=== PATIENT | male | born 1930 | race Caucasian/White ===

== ENCOUNTER 2016-06-07 17:14 | Inpatient (IN) | payer MEDICARE ==
[2016-06-07 17:54] LABS: ABSOLUTE NEUTROPHIL COUNT 9.4 K/mm3 (1.8-7.7); BASO % 0.1 % (0.2-1.0); HEMATOCRIT 41.6 % (32.0-52.0); IMM NEUT # 0.2 K/mm3 (0-0.2); IMM NEUT% 1.3 % (0-1); LYMPH # 0.7 (1.0-4.8); MEAN CELL VOLUME 107.5 fl (80.0-94.0); MEAN CORPUSCULAR HEMOGLOBIN 33.6 pg (27.0-31.0); MEAN CORPUSCULAR HGB CONC 31.3 g/dl (33.0-37.0); MEAN PLATELET VOLUME 12.3 fl (7.4-10.4); MONO # 0.9 (0.0-0.8); MONO % 8.2 % (4-12); NEUT % 84.4 % (43-75); PLATELET COUNT 86 K/mm3 (130-400); RED CELL DISTRIBUTION WIDTH 14.6 % (11.5-14.5)
[2016-06-07] MEDS ORDERED: ALBUTEROL/IPRATROPIUM 2.5/0.5 MG 3 ML/EACH DOSE ONE (18:00)
[2016-06-07 18:05] LABS: VENOUS BLOOD GAS BASE EXCESS 2.7 mmol/L (-2.0-2.0); VENOUS BLOOD GAS HCO3 31.6 mmol/L (22.0-27.0)
[2016-06-07 18:06] LABS: ALBUMIN 3.7 gm/dL (3.5-5.7); CALCIUM 9.1 mg/dL (8.6-10.3)
[2016-06-07] MEDS ORDERED: FUROSEMIDE 40 MG/4 ML VIAL ONE (18:06)
[2016-06-07 18:21] LABS: PROTHROMBIN TIME 69.1 SECONDS (9.3-11.4)
[2016-06-07 18:24] LABS: INR 6.22
--- NOTE | 2016-06-07 18:46 | RAD ---
06/07/2016 6:41 PM CHEST-AP BEDSIDE History: Shortness of breath, hypoxia. History of heart failure and COPD. Comparison: 11/20/2011 Findings: Single AP view of the chest is obtained. The lungs demonstrate linear platelike atelectasis at the right base. Low-volume limit the study. Small right-sided effusion is likely present versus pleural thickening, as this was seen on prior exam. The cardiomediastinal silhouette is unremarkable.. The osseous structures are intact.. Median sternotomy wires are present. Left-sided single lead pacemaker is identified with lead terminating in expected region of the right ventricle. EKG leads overlie the chest. IMPRESSION: Low volumes with probable pleural thickening versus small effusion on the right. Follow-up as clinically warranted.
[2016-06-07 19:57] VITALS: BMI 35.4
[2016-06-07] MEDS ORDERED: MENTHOL/CETYLPYRD 1 EACH LOZENGE PO PRN (20:03)
[2016-06-07] MEDS ORDERED: ACETAMINOPHEN 325 MG TABLET PO PRN ×2 (20:03→20:08)
[2016-06-07] MEDS ORDERED: BISACODYL 5 MG TABLET.EC PO PRN (20:03)
[2016-06-07] MEDS ORDERED: CALCIUM CARBONATE 500 MG TAB.CHEW PO PRN (20:03)
[2016-06-07] MEDS ORDERED: SODIUM CHLORIDE 0.9% 100 ML IV PRN (20:03)
[2016-06-07] MEDS ORDERED: BLISTEX LIPSTICK 1 EACH TP PRN (20:03)
[2016-06-07] MEDS ORDERED: BISACODYL 10 MG SUP PR PRN (20:03)
[2016-06-07] MEDS ORDERED: ALBUTEROL SULFATE 200 PUFFS/INH INHALER IH PRN (20:08)
[2016-06-07] MEDS ORDERED: ALBUTEROL/IPRATROPIUM 2.5/0.5 MG 3 ML/EACH DOSE NEB PRN (20:11)
[2016-06-07 20:47] LABS: URINE BILIRUBIN NEGATIVE (NEGATIVE); URINE BLOOD TRACE (NEGATIVE); URINE GLUCOSE (UA) NEGATIVE (NEGATIVE); URINE LEUKOCYTE ESTERASE NEGATIVE (NEGATIVE); URINE NITRITE NEGATIVE (NEGATIVE); URINE PROTEIN NEGATIVE (NEGATIVE); URINE UROBILINOGEN NORMAL (0-1 mg/dl)
[2016-06-07 20:49] LABS: URINE APPEARANCE CLEAR; URINE COLOR YELLOW
[2016-06-07 20:53] LABS: URINE BACTERIA 0; URINE EPITHELIAL CELLS 0 /hpf; URINE RBC 0 /hpf; URINE WBC NEG /hpf
[2016-06-07] MEDS: CARVEDILOL 6.25 MG TABLET PO SCH (21:25)
[2016-06-07] MEDS: NORTRIPTYLINE HCL 25 MG CAPSULE PO SCH (21:25)
[2016-06-07] MEDS: DOCUSATE SODIUM 100 MG CAPSULE PO SCH (21:25)
[2016-06-07] MEDS: PREDNISONE 10 MG TABLET PO SCH (21:27)
[2016-06-07] MEDS ORDERED: FUROSEMIDE 40 MG/4 ML VIAL IV SCH (22:00)
[2016-06-07] MEDS ORDERED: FUROSEMIDE 40 MG/4 ML VIAL IV ONE (22:00)
[2016-06-08 00:47] LABS: ARTERIAL BLOOD GAS HCO3 27.4 mmol/L (22.0-28.0); ARTERIAL BLOOD GAS PCO2 63.3 mmHg (35.0-45.0); ARTERIAL BLOOD GAS PO2 74.7 mmHg (80.0-90.0); ARTERIAL BLOOD GAS pH 7.255 (7.350-7.450)
[2016-06-08 05:41] LABS: ABSOLUTE NEUTROPHIL COUNT 9.2 K/mm3 (1.8-7.7); BASO % 0.2 % (0.2-1.0); HEMATOCRIT 38.7 % (32.0-52.0); HEMOGLOBIN 12.1 gm/l (14.0-18.0); IMM NEUT # 0.2 K/mm3 (0-0.2); IMM NEUT% 1.5 % (0-1); LYMPH # 0.5 (1.0-4.8); LYMPH % 4.5 % (15-45); MEAN CELL VOLUME 105.4 fl (80.0-94.0); MEAN CORPUSCULAR HGB CONC 31.3 g/dl (33.0-37.0); MEAN PLATELET VOLUME 12.4 fl (7.4-10.4); MONO % 9.3 % (4-12); NEUT % 84.5 % (43-75); PLATELET COUNT 87 K/mm3 (130-400); RED CELL DISTRIBUTION WIDTH 14.4 % (11.5-14.5)
[2016-06-08 06:06] LABS: ALB/GLOB RATIO 1.4 (>1.0); ALBUMIN 3.3 gm/dL (3.5-5.7); CALCIUM 8.4 mg/dL (8.6-10.3); MAGNESIUM 2.6 mg/dL (1.9-2.7)
[2016-06-08 06:09] LABS: PROTHROMBIN TIME 81.1 SECONDS (9.3-11.4)
[2016-06-08 06:17] LABS: INR 6.97
[2016-06-08 06:24] LABS: ARTERIAL BLOOD GAS BASE EXCESS 3.5 mmol/L (-2.0-2.0); ARTERIAL BLOOD GAS HCO3 32.1 mmol/L (22.0-28.0); ARTERIAL BLOOD GAS PCO2 67.1 mmHg (35.0-45.0); ARTERIAL BLOOD GAS PO2 76.5 mmHg (80.0-90.0); ARTERIAL BLOOD GAS pH 7.298 (7.350-7.450)
--- NOTE | 2016-06-08 08:48 | CT ---
Exam Type: CHEST W/O CON Date and Time: 06/08/2016 6:17 AM History: Hypoxia. Comparison: Plain films earlier on the same day and to 417 Technique: Contiguous axial 3 mm images of the chest were obtained without IV contrast given patient's low GFR. Sagittal and coronal reformations with high resolution lung algorithm images were also obtained at this time. CT DI: 20.3 DLP: 736.3 FINDINGS: LUNG AND LARGE AIRWAYS: Patchy bibasilar consolidation is identified greater than would be expected for dependent and atelectatic changes at the lung bases. Patient motion artifact also limits assessment. Upper lungs are fairly clear with some scattered areas of groundglass opacity. PLEURA: within normal limits. VESSELS: Marked enlargement of the main pulmonary artery is present measuring approximately 4.9 cm on axial image 41 at the level of the bifurcation. The right pulmonary artery measures approximately 3.7 cm on image 46, with the left measuring approximately 2.9 cm on image 38. Findings likely relate to pulmonary artery hypertension. Coronary artery calcifications are present with moderate atherosclerotic disease of the visualized aorta. HEART: Moderately enlarged No pericardial effusion. MEDIASTINUM AND KATRIN: within normal limits. CHEST WALL AND LOWER NECK: Left-sided pacemaker is present with leads terminating in the expected regions of the coronary sinus and right ventricle. UPPER ABDOMEN: Ascites is noted along the dome of the liver, of unknown clinical significance. The remainder the visualized abdomen is unremarkable. BONES: Median sternotomy wires are present. Diffuse osteopenia. No lytic or sclerotic lesions. Multilevel degenerative changes of the spine are present. IMPRESSION: Patchy bibasilar airspace disease with scattered areas of groundglass opacity throughout the lungs. This is greater than would be expected for dependent and atelectatic change and more concerning for pneumonia. No effusion or pneumothorax. Moderate cardiomegaly. Marked dilation of the main pulmonary artery and ectasia of the right and left pulmonary arteries compatible with pulmonary arterial hypertension. Left-sided pacemaker and other incidental findings as above. Findings were called to Dr. Henriquez at approximately 0 840 hours on 06/08/2016.
[2016-06-08] MEDS ORDERED: FEBUXOSTAT 40 MG TABLET PO SCH (09:00)
--- NOTE | 2016-06-08 09:37 | RAD ---
06/08/2016 9:32 AM CHEST-AP BEDSIDE History: Follow-up CHF versus other. Comparison: 06/07/2016 Findings: Single AP view of the chest is obtained. The lungs again demonstrate the patchy bibasilar airspace disease with pleural thickening versus effusion on the right. This is not significantly changed from prior study The cardiomediastinal silhouette enlarged but stable. The osseous structures are intact.. 2-lead left-sided pacemaker is present with leads terminating in expected regions of the right ventricle. IMPRESSION: Stable appearance to the patient's bibasilar airspace disease and pleural thickening. CT is to follow.
[2016-06-08] MEDS: ASPIRIN (ENTERIC COATED) 81 MG TABLET.EC PO SCH (09:41)
[2016-06-08] MEDS: CARVEDILOL 6.25 MG TABLET PO SCH ×3 (09:41→20:08)
[2016-06-08] MEDS: MULTIVITAMINS 1 TAB TABLET PO SCH (09:41)
[2016-06-08] MEDS: DOCUSATE SODIUM 100 MG CAPSULE PO SCH ×2 (09:41→20:08)
[2016-06-08] MEDS: PREDNISONE 10 MG TABLET PO SCH (09:41)
[2016-06-08] MEDS: POLYETHYLENE GLYCOL 3350 17 G POWD.SUSP PO SCH ×2 (09:41→09:46)
[2016-06-08] MEDS: FUROSEMIDE 40 MG/4 ML VIAL IV SCH ×2 (09:41→17:03)
--- NOTE | 2016-06-08 10:23 | HP ---
BRIAN DEVI [id number] CHIEF COMPLAINT: Dyspnea. HISTORY OF PRESENT ILLNESS: The patient is an 85-year-old male with a history of chronic obstructive pulmonary disease, and congestive heart failure who reports three to four day history of some dyspnea. He called the doctor's office and they referred him to the emergency department and they [facility]. He denies fevers, chills, or sweats, but has had dyspnea for the last couple of days and on 06/04/2016 had been a little bit confused, otherwise had done ok since that time, but has been quite sleepy. They turn up the oxygen level to 3 L continuously, otherwise he is on 1 L at night and 3 L with activity. He has had no sputum. He has had some rattling noted in his chest. No ankle swelling. No medication changes recently except for Dr. Perez suggested taking 2 Lasix this a.m. which did not relieve his symptoms. He denies chest pain, or pressure, just dyspnea. PAST MEDICAL HISTORY: Remarkable for: 1. Coronary artery disease with a reported history of myocardial infarction and a bypass in 2006. 2. History of congestive heart failure. Previously he had a low ejection fraction which improved with 35% after his bypass, but in October of 2015 was 45 to 50%. 3. History of hypertension. 4. Dyslipidemia. 5. Atrial fibrillation. 6. Peripheral vascular disease. 7. Obesity. 8. History of elevated glucose in the past, but his glucose is normal today and he is not on any medications. 9. History of anemia. 10. History of smoking 3 packs a day, but quit in 2003. He has about a 120 pack year history. 11. History of colon polyps in 2013, both were tubular adenomatous. 12. History of chronic kidney disease with a creatinine usually around 1.6 to 2.3, but today is elevated at 3. 13. He has had a previous history of vitreous hemorrhage on the left, and has had some injections on the right for his macular degeneration and he has poor vision. 14. History of gout. He is on Uloric and prednisone. He had to quit the allopurinol due to a rash. 15. History of chronic obstructive pulmonary disease. He uses 2 L with activity and 1 L at night. 16. He was also hospitalized in July of 2015 for his cellulitis and ulcers of the lower extremities which has since healed. PAST SURGICAL HISTORY: Remarkable for: 1. Blepharoplasty. 2. Colonoscopy. 3. Atrioventricular node ablation. 4. Pacemaker. 5. Coronary artery bypass graft. ALLERGIES: INCLUDE ACYCLOVIR, AND ALLOPURINOL. HE IS LISTED BEING ALLERGIC TO TRIAMCINOLONE IN THE COMPUTER, BUT SUSPECT THAT IS NOT CORRECT. MEDICATIONS: Taken from Dr. Lolis You's list: 1. Acetaminophen 325 mg 1 to 2 by mouth every 4 hours as needed. 2. Aspirin 81 mg daily. 3. Coreg 3.125 mg by mouth twice a day. 4. Multivitamin daily. 5. Eye vitamin daily. 6. Fish oil 1000 mg by mouth daily. 7. Lasix 40 mg by mouth twice a day although he did take 80 mg this morning under Dr. Perez's suggestion. 8. Nortriptyline 25 mg at bedtime. 9. Prednisone 5 mg daily. 10. Simvastatin 20 mg today. 11. Uloric 80 mg daily. 12. Ventolin HFA as needed. 13. Warfarin 2.5 mg Thursday, Thursday, and and 1.25 Thursday, Thursday, Thursday, and Thursday. This is for atrial fibrillation. He was last checked for this 05/09/2016 and had an INR of 2.2, but today it is markedly elevated and suspect this is related to his poor oral intake and illness acutely. IMMUNIZATIONS: Influenza 03/24/2016, and [id number] on 08/24/2014. SOCIAL HISTORY: He has a history of smoking 3 packs per day for 40 years, quit in 2003. 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 He last work in [employer]. He has been for 15 years. He has three boys and one girl from previous relationship. He also has one adopted. No alcohol. No roman catholic affiliation. Hobbies include fishing, although he has limited activity tolerance. He lives in a [facility] trailer with and one dog. FAMILY HISTORY: Father no data. Mom at age 88. 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 The right is not good either with macular degeneration. Nose has been okay. Mouth has been okay. Ears are ok. Neck is ok. No chest pain. No sputum. Stomach is ok. No constipation. No diarrhea. Urinary: He does report that he feels like he has to urinate, but this is attributed to the urinary catheter that has been placed in the emergency department. Arms: He notes they some lying in bed. His bottom also hurts from lying on the gurney in the emergency department. He has had no history of stroke, but had been confused earlier this week. He does not wish to be resuscitated, and does not wish to be intubated. This was discussed with the patient, and patient' today. PHYSICAL EXAMINATION: GENERAL: Tired appearing male, BiPAP is on. VITAL SIGNS: Blood pressure is 143/75. Heart rate is 70. Respirations are 30. Oxygen saturation is 97% on BiPAP. Temperature is 98.3 axillary temperature. HEENT: Head is normocephalic, atraumatic. Eyes are difficult to assess, but no icterus is noted. Right eye with subconjunctival hemorrhage. Ears: Cerumen noted bilaterally, and difficult to assess the tympanic membranes; but hearing is adequate considering age. Nose and mouth are difficult to assess due to BiPAP mask in place. NECK: Difficult to assess also due to positioning, and mask. LUNGS: Poor air movement bilaterally. Some crackles noted to the posterior bases. HEART: Paced. Pacemaker present in the left upper chest. Heart sounds are distant and BiPAP and respiratory noises impair auscultation. No significant murmur is appreciated. ABDOMEN: Soft, nontender, and nondistended. Bowel sounds are normal. No rebound, and no guarding. GENITOURINARY: Penis is circumcised. Price is present. No gross abnormalities noted. EXTREMITIES: Legs with 1+ edema with moderate pitting noted, slightly manjeet dislocation with some old scabs and old scars consistent with a history of peripheral vascular disease. Fairly yellow marked onychomycosis is noted on the nails bilaterally, but no ulceration is seen on the feet, or lower extremities otherwise. Hands are grossly unremarkable. Some scattered bruising is noted. NEUROLOGIC: Cranial nerves appear to be intact, but difficult to assess. The patient does answer some questions, but has difficulty speaking above the muffling from the mask. LABORATORY: White count is 11.2, hemoglobin 13, and platelets 86. MCV is 107.5. INR is 6.22. Venous pH is 7.273. O2 saturation is 92% on venous blood gas, pCO2 of venous system is 70. Bicarbonate is 31.6, and pO2 71.6. Sodium is 136, potassium 5.3, chloride 97, C02 of 30, BUN 94, creatinine 3, glucose 106, and calcium 9.1. Bilirubin is 1.3. AST is 26. ALT is 23. Alkaline phosphatase is 206. Troponin is 0.17. BNP is 597. Albumin is 3.7. Globulin is 3.6. DIAGNOSTIC IMAGIN. Chest x-ray: Low volumes with probable pleural thickening versus small right pleural effusion and sternotomy changes, and pacemaker noted. 2. Electrocardiogram is paced. ASSESSMENT/PLAN: 1. Acute on chronic congestive heart failure, this is suspected systolic. Previous echocardiogram of 10/2015 showed ejection fraction 45 to 50%, but had been previously at 35%, or lower before. We will plan to give IV Lasix. Continue Coreg, monitor troponin, and anticipate recheck echocardiogram. 2. Acute kidney injury with creatinine going from 2 to 3. We will be giving IV Lasix and be cautious with fluids. We will recheck in the morning. He is not on LUISA, or ARB due to renal dysfunction at this time. 3. Atrial fibrillation. Rate is controlled. He is currently over anticoagulated on Warfarin. We will monitor on telemetry. 4. Over anticoagulation attributed acute illness. We will be holding Warfarin for the next couple of days. 5. Chronic obstructive pulmonary disease on oxygen chronically. We will continue on oxygen with his acute respiratory failure due to congestive heart failure and chronic obstructive pulmonary disease. We will be on BiPAP and consider CT if he is able to tolerate further and not having the desired response to the Lasix. We will also check influenza testing and plan nebulizer treatments as well. 6. Gout. On prednisone, chronically as well as Uloric. We will anticipate double dose of prednisone for the next 2 days for stress dose and continue on Uloric. 7. History of hyperglycemia. We will plan to monitor, but at this time he does not significant hypoglycemia, and this may have been previously associated with his last hospitalization. 8. History of peripheral vascular disease. Now quit smoking. He appears to be stable. 9. History of hypertension. We will monitor his blood pressure while he is here. 10. DO NOT INTUBATE/DO NOT RESUSCITATE requested today. 11. History of coronary artery disease with borderline elevated troponin. We will recheck, but at this time feels this is likely related to his renal status and congestive heart failure. If marked elevation, or other changes we will review with Dr. Perez. In the meantime, we will treat acute kidney injury and congestive heart failure as best as possible. 12. Macrocytosis with thrombocytopenia. We will check reticulocyte count, B12, folate, and recheck CBC in the morning. It may be that he has an early myodysplasia. 13. Immunizations. He is currently up to date. 14. Venous thromboembolism prophylaxis. He is currently over anticoagulated with Coumadin. 15. Disposition. Hope to be able to return to home with his in the next 2 to 4 days. VELVET/sanjuanita cc: MD Lolis Glynn MD Dr. Macasa Dr. [place]
[2016-06-08] MEDS ORDERED: PUMP TUBING ONE (10:43)
[2016-06-08] MEDS ORDERED: SODIUM CHLORIDE 0.9% 250 ML IV ONE (10:43)
--- NOTE | 2016-06-08 10:44 | PDOC43 ---
- Subjective Chief Complaint: Dyspnea Patient noted to have dyspnea when on 5L sitting on edge of bed with PT. Pt went down for CT. Tolerated Bipap for most of night, dyspnea is a little better , but ABG still markedly abnormal. Patient reports doing ok, doesn't care for the Bipap, but doing better than yesterday. No new c/o. Would like to eat something this am. - Objective Vital Signs Temperature 98.6 F 06/08/16 07:00 Pulse Rate 70 06/08/16 07:00 Respiratory Rate 20 06/08/16 08:00 Blood Pressure 106/47 06/08/16 07:00 O2 Saturation by Pulse Oximetry 93 06/08/16 07:00 Oxygen Delivery Method Nasal Cannula Oxygen Flow Rate 5 Vital Signs Last 12 Hours Temp Pulse Resp BP Pulse Ox 06/08/16 08:00 20 06/08/16 07:00 98.6 F 70 20 106/47 93 06/08/16 04:58 70 95 06/08/16 04:00 18 06/08/16 03:00 98.7 F 70 18 94/46 94 06/08/16 02:39 70 94 06/08/16 00:10 70 94 06/08/16 00:00 18 06/07/16 23:36 70 119/64 94 06/07/16 22:55 99.1 F 70 18 96/52 92 Intake and Output 06/06/16 06/07/16 06/08/16 23:59 23:59 23:59 Intake Total 120 400 Output Total 440 850 Balance -320 -450 Intake & Output 06/07/16 06/08/16 06/08/16 23:59 07:59 15:59 Intake Total 120 400 Output Total 440 850 Balance -320 -450 Weight 105.8 kg 105 kg Intake: PO Intake 120 400 Output: Price Output 90 850 ER Urine 350 General: Alert, Cooperative, No Acute Distress HEENT: Atraumatic Lungs: Other (Fair to poor air movement bilat, some rhonchi, decreased breath sounds bilat.) Cardiovascular: Regular Rate and Rhythm (paced) Abdomen: Soft, Normal Bowel Sounds, Non-Distended Genitourinary: Other (urine sl cloudy) Extremities: Edema (mild edema lower extrem. SCDs on.) Skin: Normal Color Neurological: Normal Speech (improved today, able to speak whole sentences, stronger.) Psych/Mental Status: Other (appears more at baseline.) Laboratory 06/08/16 05:30 06/08/16 05:30 06/08/16 06/08/16 06/07/16 06:07 05:30 22:00 RBC 3.67 L MCV 105.4 H MCH 33.0 H MCHC 31.3 L PT 81.1 H INR 6.97 H* pCO2 67.1 H pO2 76.5 L ABG pH 7.298 L ABG HCO3 32.1 H ABG O2 Saturation ABG Base Excess 3.5 H BUN 102 H Estimated GFR 20 L Calcium 8.4 L Total Bilirubin 1.3 H Alkaline Phosphatase 182 H Troponin I 0.12 H 0.15 H Total Protein 5.7 L Albumin 3.3 L % Immature Granulocyt 1.5 H 06/07/16 21:50 RBC MCV MCH MCHC PT INR pCO2 63.3 H pO2 74.7 L ABG pH 7.255 L ABG HCO3 ABG O2 Saturation 93.1 L ABG Base Excess BUN Estimated GFR Calcium Total Bilirubin Alkaline Phosphatase Troponin I Total Protein Albumin % Immature Granulocyt Current Medications: Current meds reviewed in EMR. Active Medications Acetaminophen (Tylenol) 325 - 650 mg PO Q4H PRN PRN Reason: Pain or Temperature > 100.5 F Albuterol Sulfate (Ventolin Hfa Mdi) 2 puffs IH Q4H PRN PRN Reason: Wheezing or Dyspnea Albuterol/Ipratropium (Duoneb) 3 ml NEB Q6H PRN PRN Reason: Wheezing Aspirin (Ecotrin) 81 mg PO DAILY [facility] Last Admin: 06/08/16 09:41 Dose: 81 mg Benzocaine/Menthol (Cepacol) 1 each PO PRN PRN PRN Reason: Sore Throat Bisacodyl (Dulcolax) 10 mg TN DAILY PRN PRN Reason: Constipation Bisacodyl (Dulcolax) 5 mg PO DAILY PRN PRN Reason: Constipation Calcium Carbonate/Glycine (Tums) 500 mg PO Q4H PRN PRN Reason: Indigestion Carvedilol (Coreg) 6.25 mg PO BID [facility] Last Admin: 06/07/16 21:25 Dose: 6.25 mg Docusate Sodium (Colace) 100 mg PO BID [facility] Last Admin: 06/08/16 09:41 Dose: 100 mg Furosemide (Lasix) 40 mg IV [id number] [facility] Last Admin: 06/08/16 09:41 Dose: 40 mg Sodium Chloride (Sodium Chloride 0.9%) 100 mls @ 25 mls/hr IV PRN PRN PRN Reason: Flush Azithromycin 500 mg/ Sodium (Chloride) 250 mls @ 250 mls/hr IV Q24H [facility] Ceftriaxone Sodium/Dextrose 1 (g/ Premix (D5W) 50 ml) 50 mls @ 100 mls/hr IV Q24H [facility] Multivitamins (One-A-Day) 1 tab PO DAILY [facility] Last Admin: 06/08/16 09:41 Dose: 1 tab Nortriptyline HCl (Pamelor) 25 mg PO BEDTIME [facility] Last Admin: 06/07/16 21:25 Dose: 25 mg Petrolatum/Paraffin/Mineral Oil (Blistex) 1 each TP PRN PRN PRN Reason: Dry and/or chapped lips Polyethylene Glycol/Electrolytes (Miralax) 17 g PO DAILY [facility] Last Admin: 06/08/16 09:46 Dose: Not Given Prednisone (Prednisone) 5 mg PO QAM [facility] Sodium Chloride (Normal Saline 10ml Flush) 10 - 50 ml IV PRN PRN PRN Reason: IV Flush Last Admin: 06/08/16 06:20 Dose: 10 ml Sodium Chloride (Normal Saline 10ml Flush) 10 ml IV Q8HR [facility] Last Admin: 06/08/16 09:41 Dose: 10 ml - Problems: Assessment/Plan (1) Acute respiratory failure with hypoxia and hypercapnia Status: Acute Assessment/Plan: Patient with hypercapnia, hypoxia; now on Bipap; moderate improvement so far CT suggests poss consolidation; pulmonary HTN. Underlying dx appears to be consolidation (suspected CAP), pulmonary HTN, exac COPD. Plan recheck ABG in am. (2) JUAN C (acute kidney injury) Status: Acute Assessment/Plan: Baseline Cr 1.6-2.0; remaining stable at 3.0 today. Pt taking PO today, consider add'l fluid if not taking much PO. (3) CHF (congestive heart failure) Qualifiers: Congestive heart failure type: unspecified congestive heart failure type Congestive heart failure chronicity: acute on chronic Qualifier Code: ( I50.9) Heart failure, unspecified Status: Acute Assessment/Plan: Echo ordered. CT suggests pulmonary HTN. Pt with borderline elevated troponin (trending downward); check CPK, CK-MB this am (4) Atrial fibrillation Qualifiers: Atrial fibrillation type: chronic Qualifier Code: (I48.2) Chronic atrial fibrillation Status: Chronic Assessment/Plan: Chronically anticoagulated; on Coreg. Rate stable at 70, paced. INR supratherapeutic, holding coumadin for today. Recheck in am. (5) COPD (chronic obstructive pulmonary disease) Qualifiers: COPD type: unspecified COPD Qualifier Code: (J44.9) Chronic obstructive pulmonary disease, unspecified Status: Chronic Assessment/Plan: Continue nebulizer tx. 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 Uloric dose revised to 40 due to renal status, will need to consider further if Creatinine remains elevated. VTE Prophylaxis Contraindications: Medical contraindication VTE Prophylaxis: INR supratherapeutic. Disposition: continue in ICU, using Bipap. Hope to be able to return to home, probably 2-5 days in hospital still
[2016-06-08] MEDS: CEFTRIAXONE 1 GRAM DUPLEX 1 G in Premix (D5W) 50 ml 1 EACH IV SCH (10:50)
[2016-06-08] MEDS: AZITHROMYCIN 500 MG in SODIUM CHLORIDE 0.9% 250 ML IV SCH (11:33)
[2016-06-08] MEDS: FEBUXOSTAT 40 MG TABLET PO SCH (11:59)
[2016-06-08] MEDS: NORTRIPTYLINE HCL 25 MG CAPSULE PO SCH (20:08)
[2016-06-09 05:06] LABS: ARTERIAL BLOOD GAS BASE EXCESS 4.4 mmol/L (-2.0-2.0); ARTERIAL BLOOD GAS HCO3 29.4 mmol/L (22.0-28.0); ARTERIAL BLOOD GAS PCO2 45.9 mmHg (35.0-45.0); ARTERIAL BLOOD GAS PO2 83.7 mmHg (80.0-90.0); ARTERIAL BLOOD GAS pH 7.425 (7.350-7.450)
[2016-06-09 06:05] LABS: HEMATOCRIT 39.3 % (32.0-52.0); HEMOGLOBIN 11.9 gm/l (14.0-18.0); MEAN CELL VOLUME 106.8 fl (80.0-94.0); MEAN CORPUSCULAR HEMOGLOBIN 32.3 pg (27.0-31.0); MEAN CORPUSCULAR HGB CONC 30.3 g/dl (33.0-37.0); RED CELL DISTRIBUTION WIDTH 14.4 % (11.5-14.5)
[2016-06-09 06:26] LABS: ALBUMIN 3.1 gm/dL (3.5-5.7); CALCIUM 8.9 mg/dL (8.6-10.3)
[2016-06-09 06:26] LABS: FOLIC ACID > 23.7 ng/mL (>5.9)
[2016-06-09 06:43] LABS: PROTHROMBIN TIME 86.3 SECONDS (9.3-11.4)
[2016-06-09 06:44] LABS: INR 7.72
[2016-06-09] MEDS ORDERED: PHYTONADIONE 10 MG/1 ML AMP IV ONE (06:44)
[2016-06-09] MEDS ORDERED: SODIUM CHLORIDE 0.9% IV ONE (07:00)
[2016-06-09] MEDS ORDERED: PHYTONADIONE ADULT IV ONE (07:00)
[2016-06-09] MEDS ORDERED: PUMP TUBING ONE (07:50)
[2016-06-09] MEDS: CARVEDILOL 6.25 MG TABLET PO SCH ×2 (08:06→20:17)
[2016-06-09] MEDS: POLYETHYLENE GLYCOL 3350 17 G POWD.SUSP PO SCH (08:06)
[2016-06-09] MEDS: MULTIVITAMINS 1 TAB TABLET PO SCH (08:06)
[2016-06-09] MEDS: ASPIRIN (ENTERIC COATED) 81 MG TABLET.EC PO SCH (08:06)
[2016-06-09] MEDS: FUROSEMIDE 40 MG/4 ML VIAL IV SCH ×2 (08:06→15:54)
[2016-06-09] MEDS: DOCUSATE SODIUM 100 MG CAPSULE PO SCH ×2 (08:06→20:17)
[2016-06-09] MEDS: PREDNISONE 5 MG TABLET PO SCH (08:08)
[2016-06-09] MEDS: FEBUXOSTAT 40 MG TABLET PO SCH (08:08)
[2016-06-09] MEDS: CEFTRIAXONE 1 GRAM DUPLEX 1 G in Premix (D5W) 50 ml 1 EACH IV SCH (08:30)
[2016-06-09] MEDS: AZITHROMYCIN 500 MG in SODIUM CHLORIDE 0.9% 250 ML IV SCH (09:10)
[2016-06-09] MEDS ORDERED: WARFARIN PER PHARMACY 1 EACH DOSE PO SCH (10:00)
--- NOTE | 2016-06-09 10:25 | PDOC43 ---
- Subjective Chief Complaint: Dyspnea Patient reported to be on Bipap through the night. CO2 improved, but still on high FiO2. RN reports pt wanting to get out of bed. Sats drop rapidly to 88% when Bipap off , down to 82% on 5L NC when taking pills. No special pain complaints. Did get echo this am. Did get Vit K earlier today. Small BM reported by nightman, not eating much. No new c/o. - Objective Vital Signs Temperature 100.2 F 06/09/16 07:11 Pulse Rate 70 06/09/16 07:11 Respiratory Rate 29 06/09/16 08:35 Blood Pressure 102/51 06/09/16 07:11 O2 Saturation by Pulse Oximetry 94 06/09/16 07:11 Oxygen Delivery Method Bi-PAP Oxygen Flow Rate 5 Vital Signs Last 12 Hours Temp Pulse Resp BP Pulse Ox 06/09/16 08:35 29 06/09/16 07:11 100.2 F 70 29 102/51 94 06/09/16 04:03 71 92/43 91 06/09/16 03:50 14 06/09/16 02:50 99.9 F 70 14 92/43 90 06/09/16 00:00 24 06/08/16 23:56 70 94/46 93 06/08/16 23:50 70 24 87 06/08/16 22:47 99.9 F 70 22 94/46 93 Intake and Output 06/07/16 06/08/16 06/09/16 23:59 23:59 23:59 Intake Total 120 1570 765 Output Total 440 1450 300 Balance -320 120 465 General: Alert, Cooperative, No Acute Distress Lungs: Other (Poor air movement bilat, sl wheeze noted. No crackles heard, but difficult auscultation.) Cardiovascular: Regular Rate and Rhythm, Other Abdomen: Soft, Hypoactive Bowel Sounds, Non-Distended Extremities: Other (SCDs), No Edema Psych/Mental Status: Other (tired, answers appropriately.) Laboratory 06/09/16 05:30 06/09/16 05:30 06/09/16 06/09/16 06/08/16 05:30 05:00 05:15 RBC 3.68 L MCV 106.8 H MCH 32.3 H MCHC 30.3 L PT 86.3 H INR 7.72 H* pCO2 45.9 H ABG HCO3 29.4 H ABG Base Excess 4.4 H BUN 112 H Estimated GFR 19 L Total Bilirubin 1.3 H Alkaline Phosphatase 233 H Creatine Kinase 20 L Troponin I 0.12 H Total Protein 6.2 L Albumin 3.1 L // Current Medications: Current meds reviewed in EMR. Active Medications Cardiac Aspirin (Ecotrin) 81 mg PO DAILY REPLACED BY [facility] Last Admin: 06/09/16 08:06 Dose: 81 mg Carvedilol (Coreg) 6.25 mg PO BID REPLACED BY [facility] Last Admin: 06/09/16 08:06 Dose: 6.25 mg Furosemide (Lasix) 40 mg IV [id number] REPLACED BY [facility] Last Admin: 06/09/16 08:06 Dose: 40 mg FEN Multivitamins (One-A-Day) 1 tab PO DAILY REPLACED BY [facility] Last Admin: 06/09/16 08:06 Dose: 1 tab GI Docusate Sodium (Colace) 100 mg PO BID REPLACED BY [facility] Last Admin: 06/09/16 08:06 Dose: 100 mg Polyethylene Glycol/Electrolytes (Miralax) 17 g PO DAILY REPLACED BY [facility] Last Admin: 06/09/16 08:06 Dose: 17 g ID Azithromycin 500 mg/ Sodium (Chloride) 250 mls @ 250 mls/hr IV Q24H REPLACED BY [facility] Last Admin: 06/09/16 09:10 Dose: 250 mls/hr Ceftriaxone Sodium/Dextrose 1 (g/ Premix (D5W) 50 ml) 50 mls @ 100 mls/hr IV Q24H REPLACED BY [facility] Last Admin: 06/09/16 08:30 Dose: 100 mls/hr Neuro/Psych Nortriptyline HCl (Pamelor) 25 mg PO BEDTIME REPLACED BY [facility] Last Admin: 06/08/16 20:08 Dose: 25 mg PRN Acetaminophen (Tylenol) 325 - 650 mg PO Q4H PRN PRN Reason: Pain or Temperature > 100.5 F Benzocaine/Menthol (Cepacol) 1 each PO PRN PRN PRN Reason: Sore Throat Bisacodyl (Dulcolax) 10 mg [place] DAILY PRN PRN Reason: Constipation Bisacodyl (Dulcolax) 5 mg PO DAILY PRN PRN Reason: Constipation Calcium Carbonate/Glycine (Tums) 500 mg PO Q4H PRN PRN Reason: Indigestion Petrolatum/Paraffin/Mineral Oil (Blistex) 1 each TP PRN PRN PRN Reason: Dry and/or chapped lips Pulmonary Albuterol Sulfate (Ventolin Hfa Mdi) 2 puffs IH Q4H PRN PRN Reason: Wheezing or Dyspnea Albuterol/Ipratropium (Duoneb) 3 ml NEB Q6H PRN PRN Reason: Wheezing Last Admin: 06/08/16 23:49 Dose: 3 ml Rheum Prednisone (Prednisone) 5 mg PO QAM ANTOINETTE Last Admin: 06/09/16 08:08 Dose: 5 mg - Problems: Assessment/Plan (1) Acute respiratory failure with hypoxia and hypercapnia Status: Acute Assessment/Plan: Patient with hypercapnia, hypoxia; still on Bipap; moderate improvement so far on ABG, but clinically not ruben improved. CT suggests poss consolidation; pulmonary HTN; working on diuresis with Lasix ( appears fairly dry now), With ongoing poor air movement, plan to start steroids as well. Underlying dx appears to be consolidation (suspected CAP), pulmonary HTN, exac COPD. will address exac COPD with steroids (2) JUAN C (acute kidney injury) Status: Acute Assessment/Plan: Baseline Cr 1.6-2.0; remaining stable/sl up at 3.1 today. Pt taking PO today, plan IV fluid (3) CHF (congestive heart failure) Qualifiers: Congestive heart failure type: unspecified congestive heart failure type Congestive heart failure chronicity: acute on chronic Qualifier Code: ( I50.9) Heart failure, unspecified Status: Acute Assessment/Plan: Echo ordered, anticipate it being done today. CT suggests pulmonary HTN. Pt with borderline elevated troponin (trending downward); CPK, CK-MB not remarkable. (4) Atrial fibrillation Qualifiers: Atrial fibrillation type: chronic Qualifier Code: (I48.2) Chronic atrial fibrillation Status: Chronic Assessment/Plan: Chronically anticoagulated; on Coreg. Rate stable at 70, paced. INR supratherapeutic, still holding coumadin for today / VIt K given earlier x 1. Recheck in am. (5) COPD (chronic obstructive pulmonary disease) Qualifiers: COPD type: unspecified COPD Qualifier Code: (J44.9) Chronic obstructive pulmonary disease, unspecified Status: Chronic Assessment/Plan: Continue nebulizer tx, Bipap. 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 Uloric now stopped due to renal status, will need to consider further if Creatinine remains elevated. VTE Prophylaxis Contraindications: Medical contraindication VTE Prophylaxis: INR supratherapeutic, did get VIt K. Disposition: continue in ICU, using Bipap. Hope to be able to return to home, probably 2-5 days in hospital still
[2016-06-09] MEDS ORDERED: INSULIN ASPART (DOSE) 100 UNITS/1 ML SUB-Q PRN (10:28)
[2016-06-09] MEDS: SODIUM CHLORIDE 0.9% 1,000 ML IV SCH ×2 (10:37→18:55)
[2016-06-09 11:26] LABS: URINE BILIRUBIN NEGATIVE (NEGATIVE); URINE BLOOD 4+ (NEGATIVE); URINE GLUCOSE (UA) NEGATIVE (NEGATIVE); URINE LEUKOCYTE ESTERASE NEGATIVE (NEGATIVE); URINE NITRITE NEGATIVE (NEGATIVE); URINE PROTEIN 2+ (NEGATIVE); URINE UROBILINOGEN NORMAL (0-1 mg/dl)
[2016-06-09 11:34] LABS: URINE APPEARANCE CLOUDY; URINE COLOR RED
[2016-06-09 11:53] LABS: URINE RBC >100 /hpf
[2016-06-09 11:55] LABS: URINE AMORPHOUS SEDIMENT 2+; URINE BACTERIA 1+
[2016-06-09] MEDS: METHYLPRED SOD SUCCINATE 40 MG VIAL IV SCH (16:00)
[2016-06-09] MEDS: NORTRIPTYLINE HCL 25 MG CAPSULE PO SCH (20:17)
[2016-06-09] MEDS ORDERED: MORPHINE SULFATE 2 MG/ML SYRINGE IV PRN (21:34)
[2016-06-10] MEDS: METHYLPRED SOD SUCCINATE 40 MG VIAL IV SCH ×2 (01:20→09:45)
[2016-06-10 05:28] LABS: ABSOLUTE NEUTROPHIL COUNT 10.1 K/mm3 (1.8-7.7); BASO % 0.2 % (0.2-1.0); HEMATOCRIT 40.7 % (32.0-52.0); HEMOGLOBIN 12.2 gm/l (14.0-18.0); IMM NEUT # 0.1 K/mm3 (0-0.2); IMM NEUT% 0.8 % (0-1); LYMPH # 0.5 (1.0-4.8); LYMPH % 4.1 % (15-45); MEAN CELL VOLUME 108.5 fl (80.0-94.0); MEAN CORPUSCULAR HEMOGLOBIN 32.5 pg (27.0-31.0); MEAN PLATELET VOLUME 11.6 fl (7.4-10.4); MONO # 0.3 (0.0-0.8); MONO % 2.7 % (4-12); NEUT % 92.2 % (43-75); PLATELET COUNT 81 K/mm3 (130-400); RED CELL DISTRIBUTION WIDTH 14.6 % (11.5-14.5)
[2016-06-10 05:49] LABS: INR 1.4; PROTHROMBIN TIME 14.9 SECONDS (9.3-11.4)
[2016-06-10 06:02] LABS: ALB/GLOB RATIO 0.9 (>1.0); ALBUMIN 3.1 gm/dL (3.5-5.7); CALCIUM 9.1 mg/dL (8.6-10.3)
[2016-06-10 06:51] LABS: BAND 9 % (0-10); BASOPHIL 0 % (0-1); EOSINOPHIL 0 % (1-3); LYMPHOCYTE 3 % (15-45); MONOCYTE 0 % (4-12); NEUTROPHILS 88 % (43-75); PLATELET ESTIMATE DECREASED (NORMAL); TOTAL CELLS COUNTED 100
[2016-06-10 06:52] LABS: ANISOCYTOSIS 1+; HYPOCHROMIA 1+
[2016-06-10] MEDS ORDERED: SODIUM POLYSTYRENE SULFONATE 15 G/60 ML BOT PO ONE (08:36)
[2016-06-10] MEDS ORDERED: LACTULOSE 20 G/30 ML UDCUP PO PRN (08:38)
[2016-06-10] MEDS ORDERED: SENNOSIDES 8.6 MG TABLET PO PRN (08:38)
[2016-06-10] MEDS: CEFTRIAXONE 1 GRAM DUPLEX 1 G in Premix (D5W) 50 ml 1 EACH IV SCH (08:47)
--- NOTE | 2016-06-10 08:50 | PDOC43 ---
- Subjective Chief Complaint: Dyspnea Patient reported to be modestly better. Was off bipap for 5 hours yesterday, did have some Ensure and fruit cup this am. Pt denies pain. No new c/o. Given IVF and steroids yesterday. Abx continued so far. - Objective Vital Signs Temperature 97.3 F 06/10/16 02:32 Pulse Rate 70 06/10/16 05:12 Respiratory Rate 16 06/10/16 04:00 Blood Pressure 98/49 06/10/16 02:32 O2 Saturation by Pulse Oximetry 95 06/10/16 05:12 Oxygen Delivery Method Bi-PAP Oxygen Flow Rate 5 Vital Signs Last 12 Hours Temp Pulse Resp BP Pulse Ox 06/10/16 05:12 70 95 06/10/16 04:00 16 06/10/16 02:32 97.3 F 70 16 98/49 95 06/10/16 01:37 70 94 06/10/16 00:00 18 06/09/16 22:44 70 96/46 96 06/09/16 22:38 98.3 F 70 18 92/47 93 Intake and Output 06/08/16 06/09/16 06/10/16 23:59 23:59 23:59 Intake Total 1570 3282 1190 Output Total 1450 625 450 Balance 120 2657 740 Intake & Output 06/09/16 06/10/16 06/10/16 23:59 07:59 15:59 Intake Total 1017 1190 660 Output Total 325 450 Balance 692 740 660 Weight 107.6 kg Intake: PO Intake 200 360 IV Fluids 817 1190 300 Output: Price Output 325 450 General: Other (Pt awakens easily. Answers questions, but is difficult to understand.) Lungs: Other (Poor air movement bilat.) Cardiovascular: Regular Rate and Rhythm (paced.) Abdomen: Soft, Normal Bowel Sounds, Other (full abdomen, no R/G. Not tender.) Extremities: Other (SCDs), No Edema Skin: Normal Color, Other (skin appears thin) Neurological: Other (minimally improved from admission) Laboratory 06/10/16 05:10 06/10/16 05:10 06/10/16 06/09/16 06/09/16 05:10 22:32 14:07 RBC 3.75 L MCV 108.5 H MCH 32.5 H MCHC 30.0 L RDW 14.6 H PT 14.9 H BUN 124 H Estimated GFR 19 L POC Capillary Glucose 234 H 137 H Total Bilirubin 1.1 H Alkaline Phosphatase 243 H Albumin 3.1 L Albumin/Globulin Ratio 0.9 L Current Medications: Current meds reviewed in EMR. Active Medications Acetaminophen (Tylenol) 325 - 650 mg PO Q4H PRN PRN Reason: Pain or Temperature > 100.5 F Albuterol Sulfate (Ventolin Hfa Mdi) 2 puffs IH Q4H PRN PRN Reason: Wheezing or Dyspnea Albuterol/Ipratropium (Duoneb) 3 ml NEB Q6H PRN PRN Reason: Wheezing Last Admin: 06/08/16 23:49 Dose: 3 ml Aspirin (Ecotrin) 81 mg PO DAILY [facility] Last Admin: 06/09/16 08:06 Dose: 81 mg Benzocaine/Menthol (Cepacol) 1 each PO PRN PRN PRN Reason: Sore Throat Bisacodyl (Dulcolax) 10 mg [place] DAILY PRN PRN Reason: Constipation Bisacodyl (Dulcolax) 5 mg PO DAILY PRN PRN Reason: Constipation Calcium Carbonate/Glycine (Tums) 500 mg PO Q4H PRN PRN Reason: Indigestion Carvedilol (Coreg) 6.25 mg PO BID [facility] Last Admin: 06/09/16 20:17 Dose: 6.25 mg Docusate Sodium (Colace) 100 mg PO BID [facility] Last Admin: 06/09/16 20:17 Dose: 100 mg Furosemide (Lasix) 40 mg IV [id number] [facility] Last Admin: 06/09/16 15:54 Dose: 40 mg Sodium Chloride (Sodium Chloride 0.9%) 100 mls @ 25 mls/hr IV PRN PRN PRN Reason: Flush Azithromycin 500 mg/ Sodium (Chloride) 250 mls @ 250 mls/hr IV Q24H [facility] Last Admin: 06/09/16 09:10 Dose: 250 mls/hr Ceftriaxone Sodium/Dextrose 1 (g/ Premix (D5W) 50 ml) 50 mls @ 100 mls/hr IV Q24H [facility] Last Admin: 06/09/16 08:30 Dose: 100 mls/hr Insulin Aspart (Novolog (Dose)) 0 units SUB-Q WM/BEDTIME PRN; Protocol PRN Reason: Blood Sugar > Last Admin: 06/09/16 22:38 Dose: 2 units Methylprednisolone Sodium Succinate (Solu-Medrol) 40 mg IV Q8HR [facility] Last Admin: 06/10/16 01:20 Dose: 40 mg Miscellaneous (Coumadin Per Pharmacy) 1 each PO PERPHARMACY [facility] Morphine Sulfate (Morphine Sulfate) 2 mg IV Q2H PRN PRN Reason: for pain or dyspnea Last Admin: 06/09/16 22:21 Dose: 2 mg Multivitamins (One-A-Day) 1 tab PO DAILY [facility] Last Admin: 06/09/16 08:06 Dose: 1 tab Nortriptyline HCl (Pamelor) 25 mg PO BEDTIME [facility] Last Admin: 06/09/16 20:17 Dose: 25 mg Petrolatum/Paraffin/Mineral Oil (Blistex) 1 each TP PRN PRN PRN Reason: Dry and/or chapped lips Polyethylene Glycol/Electrolytes (Miralax) 17 g PO DAILY [facility] Last Admin: 06/09/16 08:06 Dose: 17 g Prednisone (Prednisone) 5 mg PO QAM [facility] Last Admin: 06/09/16 08:08 Dose: 5 mg Sodium Chloride (Normal Saline 10ml Flush) 10 - 50 ml IV PRN PRN PRN Reason: IV Flush Last Admin: 06/08/16 17:04 Dose: 10 ml Sodium Chloride (Normal Saline 10ml Flush) 10 ml IV Q8HR [facility] Last Admin: 06/10/16 02:49 Dose: Not Given - Problems: Assessment/Plan (1) Acute respiratory failure with hypoxia and hypercapnia Status: Acute Assessment/Plan: Patient with hypercapnia, hypoxia; still on Bipap; Bicarbonate improved to 31 this am. recheck abg. CT suggests poss consolidation; pulmonary HTN; working on diuresis with Lasix ( IVF yesterday, doesn't appear fluid overloaded.), started steroids 2/6 Underlying dx appears to be consolidation (suspected CAP), pulmonary HTN, exac COPD. will address exac COPD with steroids. Continue azithromycin, ceftriaxone. (2) JUAN C (acute kidney injury) Status: Acute Assessment/Plan: Baseline Cr 1.6-2.0; remaining stable/sl up at 3.1 today. Potassium increasing, now 6.0; will consider kayexalate Check Mg, Phos today and tomorrow. IV fluids cautiously yesterday, will give again today. Check urine (3) CHF (congestive heart failure) Qualifiers: Congestive heart failure type: unspecified congestive heart failure type Congestive heart failure chronicity: acute on chronic Qualifier Code: ( I50.9) Heart failure, unspecified Status: Acute Assessment/Plan: Echo done 06/09 suggests pulmonary HTN, severe R vent dilatation, LESLY; awaiting final report Pt with borderline elevated troponin (trending downward); CPK, CK-MB not remarkable. recheck BNP (4) Atrial fibrillation Qualifiers: Atrial fibrillation type: chronic Qualifier Code: (I48.2) Chronic atrial fibrillation Status: Chronic Assessment/Plan: Chronically anticoagulated; on Coreg. Rate stable at 70, paced. INR was high; Vit K given earlier x 1. INR now 1.4. Plan resume enoxaparin for anticoagulation (5) COPD (chronic obstructive pulmonary disease) Qualifiers: COPD type: unspecified COPD Qualifier Code: (J44.9) Chronic obstructive pulmonary disease, unspecified Status: Chronic Assessment/Plan: Continue nebulizer tx, Bipap, abx, (now full dose) steroids. Appreciate RT care. 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 Uloric now stopped due to renal status, VTE Prophylaxis Contraindications: Medical contraindication VTE Prophylaxis: INR now 1.4, after Vit K. Disposition: continue in ICU, using Bipap. with ongoing respiratory difficulty, renal failure, may wish to discuss pt and family wishes regarding further interventions Additional Comments: Pulmonary - exac COPD, suspect severe pulm HTN, with bacterial (organism not known) CAP/consolidation on CT Initially with respiratory acidosis, now corrected with Bipap. Modest improvement so far with abx, diuresis. Added steroids 2/ Continue on Bipap Cardiac suspect pt's CHF is primarily right sided, acute on chronic diastolic HF, with pulm HTN Elevated troponin not significant, just related to respiratory distress Atrial fib, paced. Rate 70 Anticoag - anticipate enoxaparin (was previous over-anticoag with coumadin, then got Vit K) Severe R sided changes on echo, awaiting final report Check BNP, but anticipate add'l IVF today GI BM 2 days ago; more meds added Tolerating PO intake, seems to like the Ensure Renal/FEN Cr remains elevated at 3.1, fairly low urine output in setting of lower BP. Hyperkalemia - due to renal dysfxn. Potassium further elevated, despite IV Lasix, not giving K Plan dose Kayexalate; check Mg, Phos Plan add'l fluids today cautiously, checking BNP, monitor response, urine output MVI, check with dietitian Will discuss with family about renal status, if wishing further tx, and who did he see previously. Dee renewed due to need to monitor urine output. Derm - no c/o Neuro - stable, but seems weak appreciate PT/OT care Will work to correct electrolyte abN. DNR status Endocrine Glucose up some, due to steroids on CBG, insulin. Rheum Hx hyperuricemia, hx gout (believed in foot?), not current. Heme/Onc Anemia, macrocytic. Sl elevated retic count. Suspect poss myelodysplasia with lower platelets Thrombocytopenia suspected due to bone marrow/myelodysplasia Elevated WBC due to CAP, also steroids may contribute. Elevated INR was toxic drug effect from Coumadin, now corrected. Was elevated due to decreased appetite/intake, illness.
[2016-06-10] MEDS: AZITHROMYCIN 500 MG in SODIUM CHLORIDE 0.9% 250 ML IV SCH (09:09)
[2016-06-10] MEDS: MULTIVITAMINS 1 TAB TABLET PO SCH (09:46)
[2016-06-10] MEDS: DOCUSATE SODIUM 100 MG CAPSULE PO SCH (09:46)
[2016-06-10] MEDS: POLYETHYLENE GLYCOL 3350 17 G POWD.SUSP PO SCH (09:46)
[2016-06-10] MEDS: PREDNISONE 5 MG TABLET PO SCH (09:46)
[2016-06-10] MEDS: FEBUXOSTAT 40 MG TABLET PO SCH (09:46)
[2016-06-10] MEDS: ASPIRIN (ENTERIC COATED) 81 MG TABLET.EC PO SCH (09:46)
[2016-06-10] MEDS: CARVEDILOL 6.25 MG TABLET PO SCH (09:46)
[2016-06-10] MEDS: FUROSEMIDE 40 MG/4 ML VIAL IV SCH (09:46)
[2016-06-10] MEDS ORDERED: SODIUM CHLORIDE 0.9% 1,000 ML IV SCH (10:00)
[2016-06-10] MEDS ORDERED: ENOXAPARIN SODIUM 100 MG/ML SYRINGE SUB-Q SCH (10:30)
[2016-06-10 10:56] LABS: ARTERIAL BLOOD GAS BASE EXCESS -2.8 mmol/L (-2.0-2.0); ARTERIAL BLOOD GAS HCO3 26.2 mmol/L (22.0-28.0); ARTERIAL BLOOD GAS PCO2 66.2 mmHg (35.0-45.0); ARTERIAL BLOOD GAS PO2 70.6 mmHg (80.0-90.0); ARTERIAL BLOOD GAS pH 7.216 (7.350-7.450)
[2016-06-10 11:02] LABS: MAGNESIUM 2.8 mg/dL (1.9-2.7)
[2016-06-10 11:08] VITALS: BP 97/82
[2016-06-10] MEDS ORDERED: SODIUM CHLORIDE IRRIG 1,000 ML BOT IR ONE (12:44)
[2016-06-10] MEDS ORDERED: CALCIUM ACETATE 667 MG CAPSULE PO SCH (13:00)
--- NOTE | 2016-06-10 13:21 | TS ---
Mendez Black [id number] DATE OF ADMISSION: 06/07/2016 DATE OF TRANSFER: 06/10/2016 REASON FOR TRANSFER: Transfer to assist with continuing respiratory failure and continuing renal dysfunction with electrolyte disturbance. OTHER TRANSFER DIAGNOSES: Include: 1. Acute respiratory failure with hypoxia and hypercapnia currently on Bi-PAP. 2. Moderate pulmonary hypertension. 3. Consolidation suggestive of pneumonia, presumed bacterial, no organism identified and blood cultures negative. 4. Acute kidney injury, baseline creatinine 1.6 to 2.0, has been remaining between 3 and 3.1 since admission associated with hyperkalemia now treated with Kayexalate and hypermagnesemia and hyperphosphatemia. 5. Congestive heart failure both acute on chronic with systolic and diastolic dysfunction, ejection fraction 35% on echocardiogram this hospitalization. 6. Chronic atrial fibrillation on anticoagulation rate controlled and paced. 7. Over anticoagulation now status post vitamin K with correction. INR 1.4. 8. Severe chronic obstructive pulmonary disease. 9. History of gout. 10. Borderline elevated troponin not felt to be significant. Normal CPK. Normal CK-MB. 11. 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 12. Hyperglycemia attributed to steroids. 13. Poor oral intake. REASON FOR ADMISSION: The patient is a 85-year-old male with history of severe chronic obstructive pulmonary disease and congestive heart failure who presented regarding a 3 to 4 day history of worsening dyspnea. He increased his home oxygen some without much improvement. Dr. Franks had seen him and suggested increasing his Lasix which did not relieve his symptoms. In the emergency room his initial findings showed a white blood cell count of 11.2, hemoglobin 13.0, MCV 107.5, platelets 86. His INR was 6.22. His initial blood gas showed a venous pH of 7.273, oxygen saturation 92%. Base excess 2.7, venous pCO2 70, venous PO2 71.6, and bicarbonate 31.6. His sodium was 136, potassium 5.3, BUN 94, creatinine 3.0, glucose 106, calcium 9.1, bilirubin 1.3, AST 26, ALT 23, alkaline phosphatase elevated at 206. Troponin 0.17, BNP 597. His urinalysis initially showed a specific gravity of 1.20 and was negative. Influenza testing was negative. His initial chest x-ray had showed low volumes with probable pleural thickening versus small effusion on the right. He was referred to the hospitalist service. Blood cultures were done and were negative. He was admitted to the intensive care unit and started on a Bi-PAP which he tolerated fairly well. He underwent diuresis with IV Lasix, but did not have substantial output. He had a CT of the chest performed 06/08/2016 which showed patchy bibasilar airspace disease with scattered areas of ground glass opacity throughout the lungs greater than expected for dependent or atelectatic changes and more concerning for pneumonia, no effusion or pneumothorax, moderate cardiomegaly, marked dilation of the main pulmonary artery, and ectasia of the right and left pulmonary arteries compatible with pulmonary hypertension, left sided pacemaker. Patient was treated with Rocephin and azithromycin. His initial low dose prednisone for his gout was continued with only a brief stress dose given. His CBC results remained relatively unchanged with the white count remaining between 10 and 12. His hemoglobin trended mildly downward to 12.1 and then 11.9. Platelets remained in the 80,000 range. A reticulocyte count was done and it was minimally elevated at 2.3. His INR remained elevated and actually trended upward despite holding his Coumadin up to 7.72 on 06/09/2016 when he received a dose of vitamin K and then it was 1.4 on 06/10/2016. Patient had several blood gases performed on Bi-PAP. He had a general trending downward of his pCO2 as low as 45.9. On 06/09/2016 pH was 1.425, PO2 of 83.7, saturation 96%, but a follow up blood gas done when he was on 5 liters nasal cannula showed a pH of 7.216, pCO2 of 66, and a PO2 of 70.6. His creatinine remained relatively unchanged at 3.1 despite initial diuresis and lateral administration of IV fluids. His potassium trended upward from 5.3 on admission to 6.0 to 2.7 when he received a dose of Kayexalate 15 gm. His magnesium and phosphorus were checked and phosphorus elevated at 6.6 when PhosLo was started and the magnesium was 2.8. Liver enzymes remained relatively unchanged with a modest elevation of his alkaline phosphatase at 243. His troponin trended downward from 0.17 on admission to 0.12 by 06/09/2016. His CK-MB remained low. His BNP was 597 on admission and on the morning of 06/10/2016 it was 351. He had a B12 and a folate level down to check his macrocytosis, B12 was 723 and folic acid greater than 23. A follow up urinalysis showed greater than 100 red cells, 3 to 5 white cells, 1+ bacteria, but this was after his Price catheter had been in for several days. His echocardiogram was performed on 06/09/2016 and showed moderate left ventricular dilation, left atrial enlargement by volume criteria, global hypokinesis of the left ventricle with moderately reduced systolic function, left ventricular ejection fraction estimated at 35%, aortic valve poorly seen, mild mitral annular calcification, mild tricuspid valve regurgitation, estimated right ventricular systolic pressure, pacing artifact in the right sided chambers, suggestion of grade II diastolic dysfunction with elevated left atrial pressure. With a lack of progress on laboratory findings and respiratory status call was made to [facility] and spoke with Dr. Varela. He indicated that patient would be a satisfactory patient for transfer and he would accept this patient when a bed became available. It is anticipated the patient will be sent. This was discussed with the patient's as well and patient is anticipated to transferred later today. ALLERGIES: PATIENT'S CURRENT ALLERGIES LISTED BEING ALLOPURINOL WHICH CAUSED A RASH, ACYCLOVIR UNSPECIFIED REACTION, AND TRIAMCINOLONE WHICH WAS ASSOCIATED WITH A RASH. DISCHARGE MEDICATIONS: His active medications are: 1. Acetaminophen 325 to 650 mg by mouth every 4 hours as needed. 2. Albuterol 2 puffs inhaled every 4 hours as needed. 3. DuoNeb 3 mL neb every 6 hours as needed. 4. Aspirin 81 mg daily. 5. Azithromycin 500 mg now to be discontinued after today being his third day. 6. Cepacol as needed. 7. Dulcolax by mouth as needed. 8. PhosLo started at 1334 mg three times daily with meals. 9. Tums 500 mg by mouth every 4 hours as needed. 10. Coreg 6.25 mg by mouth twice daily. 11. Ceftriaxone 1 gm every 24 hours. 12. Colace 100 mg by mouth twice daily scheduled. 13. Lovenox 100 mg every 24 hours. 14. Furosemide 40 mg IV twice daily. 15. NovoLog sliding scale with meals and at bedtime. 16. Lactulose 10 gm by mouth daily as needed. 17. Solu-Medrol 40 mg IV every 8 hours scheduled was started on 06/09/2016. 18. Coumadin per pharmacy is on hold. 19. Morphine sulfate 2 mg IV every 2 hours as needed. 20. Multivitamin 1 by mouth daily. 21. Nortriptyline 25 mg at bedtime. 22. Blistex topically as needed. 23. MiraLax 17 mg by mouth daily. 24. Prednisone is on hold. 25. Senna 8.6 mg by mouth daily as needed. 26. He was going to receive some additional normal saline cautiously today. VITAL SIGNS: Most recently are temperature 97.5, pulse 70, blood pressure 97/82, respirations 19, 97% on saturation on Bi-PAP, 40% FIO2. DISCHARGE CONDITION: Remains relatively unchanged. He is slightly sleepy, but is able to answer and is able to eat some, but fatigues very quickly and has marked weakness. CODE STATUS: Do not resuscitate, do not intubate. JOB: [id number] CC: Dr. Danielle Read Dr. Tiny Varela
== END 2016-06-10 15:30 | disposition short-term general hospital (02) | DRG 189 ==
LOC: ED 17:14 → ICU 18:43
PROVIDERS: ADMIT Family Medicine; ATTEND Family Medicine
DX: J96.02 Acute respiratory failure with hypercapnia (principal); J15.9 Unspecified bacterial pneumonia; I50.43 Acute on chronic combined systolic (congestive) and diastolic (congestive) heart failure; N17.9 Acute kidney failure, unspecified; J90 Pleural effusion, not elsewhere classified; J44.9 Chronic obstructive pulmonary disease, unspecified; I25.2 Old myocardial infarction; J96.01 Acute respiratory failure with hypoxia; I27.2 Other secondary pulmonary hypertension; E83.41 Hypermagnesemia; E83.39 Other disorders of phosphorus metabolism; I11.0 Hypertensive heart disease with heart failure; I48.2 Chronic atrial fibrillation; Z79.01 Long term (current) use of anticoagulants; M10.9 Gout, unspecified; D69.6 Thrombocytopenia, unspecified; Z66 Do not resuscitate; Z95.0 Presence of cardiac pacemaker; E78.5 Hyperlipidemia, unspecified; I73.9 Peripheral vascular disease, unspecified; E66.9 Obesity, unspecified; D64.9 Anemia, unspecified; Z87.891 Personal history of nicotine dependence